=== PATIENT | male | born 1950 | race Caucasian/White ===

== ENCOUNTER 2016-06-15 16:06 | Emergency (ER) | payer BC, MEDICARE ==
[~2016-06-15] VITALS: Ht 177.8 cm; Wt 90.6 kg
[~2016-06-15 16:06] MED LIST: ASPI-557 PO; OMEG1CAP79 PO; OMEP20CA10 PO; PRAV40TA3 PO
[2016-06-15 16:10] VITALS: TEMP 98.4; Ht 177.8 cm; Wt 90.6 kg
--- OUTSIDE RECORDS SUMMARY | 2016-06-15 16:11 | XMS REPORT | CCD ---
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 Allergies Unknown or Not Available. Procedures Procedure Code Procedure Type Date CHEST [id number] 11/28/2015 History of Immunizations Unknown or Not Available. Problems Unknown or Not Available. Results COMP METABOLIC - Collect Date/Time: 11/28/2015 11:37 Test Name Code Test Result Test Units Test Ref Range GLUCOSE 100 mg/dL L=70 H=110 BUN 21 mg/dL L=7 H=18 CREATININE 1.03 mg/ dL L=0.60 H=1.30 AGE 65 YEARS GFR 72.3 SODIUM 144 mmol/L L=136 H=145 POTASSIUM 4.6 mmol/ L L=3.5 H=5.1 CHLORIDE 106 mmol/L L=98 H=107 CO2 30 mmol/L L=21 H=32 CALCIUM 8.9 mg/dL L=8.5 H=10.1 AST 26 U/L L=15 H=37 ALT 33 U/L L=12 H=78 ALKALINE PHOS 85 U/ L L=46 H=116 TOTAL PROTEIN 7.6 g/ dL L=6.4 H=8.2 ALBUMIN 4.4 g/dL L=3.4 H=5.0 TOTAL BILI 0.90 mg/ dL L=0.00 H=1.00 LIPID PANEL - Collect Date/Time: 11/28/2015 11:37 Test Name Code Test Result Test Units Test Ref Range CHOLESTEROL 157 mg/ dL L=0 H=200 TRIGLYCERIDES 60 mg/ dL L=30 H=150 HDL 55 mg/dL L=40 H=60 LDL, CALC 90 mg/dL L=0 H=100 VLDL 12 mg/dL L=0 H=40 CHOL/HDL RISK 2.9 RATIO L=0.0 H=5.0 PT FASTING: YES N/A Active Medications Unknown or Not Available. Medications Administered During Visit Unknown or Not Available. Encounters Encounter Diagnosis Diagnosis Code Start Date Hyperlipidemia, unspecified [id number] Social History Smoking Status Code Start Date End Date Never smoker [id number] Patient Decision Aids Unknown or Not Available. Discharge Instructions You were admitted to [facility] on 11/28/2015 11:29 with a principal diagnosis of Hyperlipidemia, unspecified You had the following tests done: COMP METABOLIC LIPID PANEL You were discharged from [facility] on 11/28/2015 11:29 Should you have any questions prior to discharge, please contact a member of your healthcare team. If you have left the hospital and have any questions, please contact your primary care physician. Chief Complaint and Reason For Visit Chief Complaint Date of Onset LAB/XRAY Function Status Unknown or Not Available. Plan of Care Unknown or Not Available. Referral/Transition of Care Unknown or Not Available.
--- NOTE | 2016-06-15 16:30 | ERPDOC ---
Departure Disposition Decision Date: Jun 15, 2016 Disposition Decision Time: 17:34 Disposition: 01 DISCHARGED HOME, SELF-CARE Impression Impression Impression: Primary Impression: Knee injury Encounter type: initial encounter Laterality: unspecified laterality Qualified Codes: S89.90XA - Unspecified injury of unspecified lower leg, initial encounter Severity: Mild Condition: Improved Seen By: Physician only Referrals: MIRTHA VAUGHN MD (Family) 2 Days [facility] 2 Days Patient Instructions: Knee Pain (ED) Problems/Meds/Labs Reviewed?: Yes Medications reviewed and manag: Yes Follow up care ordered?: Yes Mental Status: Alert, Oriented Scripts Hydrocodone/Acetaminophen (Tomball 5-325 Tablet) 5-325 Tablet 1 TAB PO Q4HR Y for PAIN for 3 Days, #18 TAB 0 Refills Prov: NARDA MILLS DO 06/15/16 HPI - Lower Extremity General Chief Complaint: Lower Extremity Injury Stated Complaint: FALL, R KNEE PAIN Time Seen by Provider: 16:18 Source: patient Exam Limitations: no limitations HPI - Lower Extremity Initial Comments 65-year-old male presents to the emergency department with a chief complaint of an injury to his right knee. Patient notes that he stepped down off a horse and twisted his right knee. Patient notes a mild dull aching discomfort in the right knee without radiation. Pain increases with ambulation. Pain improves with rest and positioning. Patient denies any other injuries. No other complaints or associated symptoms. Symptoms have been persistent in nature since onset. Occurred At: home Onset/Timing: Gradual Allergies: Coded Allergies: No Known Drug Allergies (Verified Allergy, Unknown, 06/15/16) Past History Past Medical History Pt denies signifigant [facility] Surgical History General: tonsils Joint: knee Family History Family History: Negative Vaccines Hx Influenza Vaccination: Yes (DEC 2014) Hx Pneumococcal Vaccination: No Social History Smoking Status: Never smoker Substance Use Type: does not use Alcohol Intake: none Review of Systems Constitutional Constitutional: DENIES: chills, fever Eyes General: DENIES: erythema, exudate Lids/Accessories: DENIES: erythema, swelling Vision: DENIES: acuity, blurring ENMT Ears: DENIES: drainage, pain Hearing: DENIES: hearing loss Balance: DENIES: ataxia, falling to one side Sinuses: DENIES: congestion, pain Nose: DENIES: nosebleeds, pain Mouth/Throat: DENIES: painful swallowing, sore throat Teeth: DENIES: pain Jaw: DENIES: pain Cardiovascular Cardiac: DENIES: chest pain, dyspnea on exertion Rhythm/Rate: DENIES: irregular beat, palpitations Vascular: DENIES: pedal edema, unilateral swelling Pulmonary Respiratory: DENIES: cough, dyspnea, pleuritic chest pain, sputum GI Upper Abdomen: DENIES: nausea, pain, vomiting Lower Abdomen: DENIES: diarrhea, pain General: DENIES: dysuria, pain Musculoskeletal General: DENIES: pain, tenderness Integumentary Skin: DENIES: itching, rash Neurological General: DENIES: headache, numbness, weakness Psychiatric Psychiatric: DENIES: emotional instability, suicidal ideation/attempt Endocrine Endocrine: DENIES: polydipsia, polyphagia Hematologic/Lymphatic Hematologic/Lymphatic: DENIES: frequent nosebleeds, lymphadenopathy Allergic/Immunological Allergic/Immunoligical: DENIES: frequent infections, hives Physical Exam General General Nourishment: well nourished, well developed, appears stated age, no acute distress, adult General Body Habitus: well groomed Vitals and Pain First Documented Vital Signs Date Time Temp Pulse Resp B/P Pulse Ox O2 Delivery O2 Flow Rate FiO2 06/15/16 16:10 98.4 62 18 148/77 98 Room Air Weight: Kilograms: 90.600 Height (feet): 5 Height (inches): 10.00 Triage Pain Scale: RN VS reviewed by Provider: Yes Normal Exams: Head: Normocephalic w/o trauma Eyes: Pupils are PERRLA w/ EOMI, No scleral icterus, irritation, or foreign bodies noted ENMT: No facial trauma, nasal exudates, pharyngeal erythema, or exudates are noted Dental: No fractured, loose, or missing teeth noted Neck: Full range of motion, without adenopathy, JVD, bruits or thyromegaly Chest/Resp: Clear all stewart, with good airflow, and symmetry bilaterally CV: Regular rate and rhythm, without murmur or gallop, Pulses 2+ all extremities, capillary refill, <2 seconds all ext., no pedal edema noted Abdomen: Bowel sounds positive, soft, non-tender, non-distended, no hepatosplenomegaly, masses or bruits noted Lymphatic: No lymphadenopathy, or lymphedema noted Musculoskeletal: or deformity noted, good range of motion, all extremities Integumentary: No rashes, hives, or bruising noted, hair and nails, without abnormality Neurologic: Patient is alert, and oriented, cranial nerves, motor/sensory/ cerebellar, exams w/o gross deficits, to observation Psychiatric: Patient exhibits, appropriate attention, emotion and affect Musculoskeletal (brief) Comments Right Knee - full range of motion. Diffusely tender to palpation. No erythema. No edema. Pulses intact. Sensation intact. capillary refill less than 2. No focal bony tenderness. Negative ligamentous examination. No other tenderness in the right lower extremity. Skin is intact. Differential Diagnoses Considering: Dislocation, Fracture, Sprain, Strain Progress Results/Orders Orders Procedure Category Date Status Time Knee Right 3 Views RAD 06/15/16 Resulted 16:28 Hydrocodone/Acetaminophen PHA 06/15/16 Complete (Tomball 5/325) 17:30 Hydrocodone/Apap PHA 06/15/16 Complete 5/325 Prepack (Tomball 5 18:00 Medications Current ED Medications Acetaminophen/ Hydrocodone Bitart (Tomball 5/325) 1 tab O ONCE PO Last administered on 06/15/16 17:26; Start 06/15/16 at 17:30; Stop 06/15/16 at 17:31 ; Status DC Acetaminophen/ Hydrocodone Bitart (NORCO 5 (PrePack)) 1 pack O ONCE SENT HOME Last administered on 06/15/16 17:48; Start 06/15/16 at 18:00; Stop 06/15/16 at 18:00; Status DC Progress Progress Imaging is discussed in detail with the patient and questions are answered. Patient is placed in a knee immobilizer with good alignment by the RN. Patient is distal neurovascular intact post application knee immobilizer. Patient has crutches at home. Patient is given analgesic pain medication. Patient is discharged home in improved condition. Patient to follow up as instructed. Patient is to return to the emergency department if his condition worsens or changes in any manner. Patient is in agreement with the current plan of management. Patient is to follow up as instructed. Patient is to return to the emergency department his condition worsens or changes in any manner. Prescription for pain medications provided. Xray Xray : Xray: Knee R Interpretation: Normal (questionable defect in the right kneecap most likely arthritic), Interpreted by NARDA Castillo DO Jun 15, 2016 16:30
[2016-06-15] MEDS ORDERED: CITA40TA6 PO (16:32)
--- NOTE | 2016-06-15 16:42 | NUR ---
XR Portable Xray complete
--- NOTE | 2016-06-15 17:14 | NUR ---
Splint Knee immobilizer placed
[2016-06-15] MEDS ORDERED: HYDROCODONE/APAP 5 mg/325 mg TABLET PO ONE (17:30)
[2016-06-15] MEDS ORDERED: HYDR-4246 PO (17:40)
[2016-06-15 17:50] VITALS: BP 141/80; PULSE 62; RESP 18; O2SAT 99
--- NOTE | 2016-06-15 17:50 | NUR ---
DISMISSAL DISMISSAL INSTRUCTIONS WITH PREPACK FOR NORCO AND AND NORCO 5MG RX. PT LEFT DEPARTMENT IN A WHEELCHAIR WITH .
[2016-06-15] MEDS ORDERED: HYDROCODONE/APAP 5/325 (PrePack) SENT HOME ONE (18:00)
--- NOTE | 2016-06-15 21:08 | DI ---
Indication: ITS.REASON: pain PROCEDURE: KNEE RIGHT 3 VIEWS: Encounter: Initial Comparison: None Findings: There is no acute fracture, dislocation or malalignment identified. Impression: No acute osseous abnormality. .
== END 2016-06-15 17:50 | disposition home or self-care (01) ==
LOC: ED 16:06
DX: S89.91XA Unspecified injury of right lower leg, initial encounter (principal); X50.1XXA Overexertion from prolonged static or awkward postures, initial encounter; Y93.52 Activity, horseback riding; Y92.008 Other place in unspecified non-institutional (private) residence as the place of occurrence of the external cause; Y99.8 Other external cause status